=== PATIENT | male | born 1980 | race African-American/Black ===

== ENCOUNTER 2017-08-06 02:34 | Emergency (ER) | payer SELFPAY ==
[~2017-08-06] VITALS: Ht 165.1 cm; Wt 67.6 kg
[~2017-08-06 02:34] MED LIST: MYLANTA II30 ML GT; PENICILLIN V P500 MG PO
[2017-08-06 03:03] VITALS: BP 139/80
[2017-08-06] MEDS ORDERED: NEURONTIN100 MG ORAL (03:13)
--- NOTE | 2017-08-06 03:13 | Emergency Room Report ---
History of Present Illness General Chief Complaint: General Complaint Source: Patient Present Illness HPI This is a 37-year-old male with a past medical history. He presents with chief complaint of numbness and tingling is to his fingers. Onset for the last week. Nothing made it better. He felt sometimes that he stressful we'll get worse. Denies any trauma. He said he was talking to his little brother phone and felt that his brother was very hyperactive and her symptoms started in his hands. This is same thing when watching TV. He denies suicidal thought homicidal thought. Denies any focal deficit. Sometime he fell his left arm being numb and weak. He straightened it out and it helped. [place] that his poor circulation. Allergies: Coded Allergies: No Known Allergies (Unverified , 08/13/12) Patient History Past Medical History: see triage record, old chart reviewed Past Surgical History: other Pertinent Family History: none Social History: Denies: smoking Immunizations: other Reviewed Nursing Documentation: PMH: Agreed, PSxH: Agreed Nursing Documentation-PMH Hx Asthma: Yes Review of Systems Eye: Denies: eye pain, blurred vision ENT: Denies: ear pain, nose congestion, throat swelling Respiratory: Denies: cough, shortness of breath Cardiovascular: Denies: chest pain, palpitations Gastrointestinal: Denies: abdominal pain, diarrhea, nausea, vomiting Musculoskeletal: Denies: back pain, joint pain Skin: Denies: rash Neurological: Reports: paresthesia, Denies: headache, numbness Endocrine: Denies: increased thirst, increased urine Hematologic/Lymphatic: Denies: easy bruising All Other Systems: negative except mentioned in HPI Physical Exam Vital Signs Date Time Temp Pulse Resp B/P (MAP) Pulse Ox O2 Delivery O2 Flow Rate FiO2 08/06/17 02:41 98.2 69 15 139/80 98 Room Air vitals normal Sp02 EP Interpretation: reviewed, normal General Appearance: well appearing, no apparent distress, alert Head: normocephalic, atraumatic Eyes: bilateral eye PERRL, bilateral eye EOMI ENT: hearing grossly normal, normal pharynx Neck: full range of motion, supple, no meningismus Respiratory: chest non-tender, lungs clear, normal breath sounds Cardiovascular #1: regular rate, rhythm, no murmur Gastrointestinal: normal bowel sounds, non tender, no mass, no organomegaly, no bruit, non-distended Musculoskeletal: back normal, gait/station normal, normal range of motion Psychiatric: mood/affect normal Skin: warm/dry Medical Decision Making Diagnostic Impression: Primary Impression: Paresthesia of hand, bilateral ER Course Patient with paresthesia. I suspect psychogenic component to this. No abnormality on exam. Maybe anxiety, drug abuse, psychosis to name a few. We' ll discharge home. Last Vital Signs Date Time Temp Pulse Resp B/P (MAP) Pulse Ox O2 Delivery O2 Flow Rate FiO2 08/06/17 03:03 98.2 69 15 139/80 98 Room Air Status: unchanged Disposition: HOME, SELF-CARE Condition: Stable Scripts Gabapentin* (NEURONTIN*) 100 Mg Capsule 100 MG ORAL THREE TIMES A DAY, #30 CAP 0 Refills Prov: RUDDY NORTON M.D. 08/06/17 Referrals: NOT CHOSEN [facility]/,REFERRING (PCP) Additional Instructions: Followup as your DrRosario in 7 days return if symptom worsen. RUDDY NORTON M.D. Aug 06, 2017 03:13
[2017-08-06 03:25] VITALS: BP 135/75
== END 2017-08-06 03:25 | disposition home or self-care (01) ==
LOC: EMR 03:02
DX: R20.2 Paresthesia of skin (principal); J45.909 Unspecified asthma, uncomplicated
CPT/HCPCS: 99283